=== PATIENT | male | born 1955 | race Caucasian/White ===

== ENCOUNTER → 2021-04-30 | Outpatient (CLI) | payer MEDICARE, BC ==
[2021-04-30 20:14] LABS: HCT 42.8 % (39.6-50.0); HGB 13.9 g/dL (13.0-17.0); MCH 30.4 pg (27.0-32.0); MCHC 32.5 g/dL (32.0-37.0); MCV 93.7 fL (80.0-97.0); Mean Platelet Volume 9.8 fL (9.5-12.2); Platelet Count 260 X 10*3/uL (140-440); RBC 4.57 X 10*6/uL (4.40-5.60); RDW 13.1 % (11.5-14.5)
[2021-05-01 01:55] LABS: T4, Free (Free Thyroxine) 1.2 ng/dL (0.80-1.80)
[2021-05-01 01:57] LABS: Luteinizing Hormone 4.1 mIU/mL; Prostate Specific Antigen 0.6 ng/mL (0.0-4.5)
[2021-05-01 03:25] LABS: Prolactin 6.1 ng/mL (2.1-17.7)
== END | disposition home or self-care (01) ==
LOC: LABWHC1 13:39
PROVIDERS: ATTEND Internal Medicine Endocrinology, Diabetes & Metabolism
DX: E29.1 Testicular hypofunction (principal); R53.83 Other fatigue
CPT/HCPCS: 36415; 82024; 82533; 82607; 83001; 83002; 84146; 84153; 84402; 84403; 84439; 84443; 84481; 85027